=== PATIENT | male | born 1985 | race Hispanic/Latino ===

== ENCOUNTER → 2023-10-12 | Emergency (ER) | payer BC ==
[~2023-10-12] MED LIST: KETOROLAC 30 MG/ML INJ ONE
--- OUTSIDE RECORDS SUMMARY | 2023-10-12 16:03 | XMS REPORT | Continuity of Care Document ---
Author Name Unknown Address [address] [facility]. [address] [place] [id number] [facility] Address [address] [facility]. [address] [place] [address] Care Team Providers Care Manager Administrative Name Role Phone Unavailable Unavailable Unavailable Results Test Description Test Time Test Comments Results Result Co mments Source LIPID [id number] 04:29:14* Test Item Value Reference Range Interpretation Comme nts CHOLESTEROL (test code = 2210) 164 MG/DL <200 TRIGLYCERIDES (test code = 2232) 47 MG/DL <150 HDL CHOLESTEROL (test code = 2220) 46 MG/DL >39 CALC LDL CHOL (test code = 2237) 104 MG/DL <100 H NOTE: CALCULATED LDL IS BASED ON ELICIA-MINOR METHOD WHICHINCLUDES ADJUSTABLE TRIGLYCERIDE:VLDL CHOLESTEROL RATIO.THIS FACTOR VARIES BY MEASURED TRIGLYCERIDE AND NON-HDLCHOLESTEROL CONCENTRATIONS WITH INCREASED CALCULATED LDL SEENIN HIGHER TRIGLYCERIDE OR LOWER NON-HDL SPECIMENS. FOR MOREINFORMATION, SEE CLIENT ANNOUNCEMENT AT [email or web address] [email or web address] RATIO LDL/HDL (test code = 2238) 2.26 RATIO <3.55 HEMOGLOBIN [id number] 03:34:25* Test Item Value Reference Range Interpretation Comme nts HEMOGLOBIN A1c (test code = 15263) 5.7 % 4.2-5.6 H CBC W/AUTO DIFF WITH [id number] 02:43:42* Test Item Value Reference Range Interpretation Comme nts WBC (test code = 1001) 5.5 K/UL 3.5-11.0 RBC (test code = 1002) 5.17 M/UL 4.50-6.10 HEMOGLOBIN (test code = 1003) 15.0 G/DL 13.5-17.0 HEMATOCRIT (test code = 1004) 44.9 % 40.0-51.0 MCV (test code = 1005) 86.8 fL 80.0-99.0 MCH (test code = 1006) 29.0 PG 25.0-33.0 MCHC (test code = 1007) 33.4 G/DL 31.0-36.0 RDW (test code = 1038) 13.0 % 11.5-15.0 NEUTROPHILS (test code = 1008) 53.8 % LYMPHOCYTES (test code = 1010) 32.4 % MONOCYTES (test code = 1011) 9.5 % EOSINOPHILS (test code = 1012) 3.7 % BASOPHILS (test code = 1013) 0.4 % IMMATURE GRANULOCYTES (test code = 1036) 0.2 % NUCLEATED RBCS (test code = 1065) 0.0 /100 WBC'S See_Comment [Automated message] The system which generated this result transmitted reference range: 0.0. The reference range was not used to interpret this result as normal/abnormal. PLATELET COUNT (test code = 1015) 206 K/UL 130-400 ABSOLUTE NEUTROPHILS (test code = 1066) 2.95 K/UL 1.50-7.50 ABSOLUTE LYMPHOCYTES (test code = 1067) 1.77 K/UL 1.00-4.00 ABSOLUTE MONOCYTES (test code = 1068) 0.52 K/UL 0.20-1.00 ABSOLUTE EOSINOPHILS (test code = 1040) 0.20 K/UL 0.00-0.50 ABSOLUTE BASOPHILS (test code = 1069) 0.02 K/UL 0.00-0.20 ABS IMMATURE GRANULOCYTES (test code = 1020) 0.01 K/UL 0.00-0.10 ABS NUCLEATED RBCS (test code = 92995) 0.00 K/UL 0.00-0.11 UNLESS OTHER NIX INDICATED, ALL TESTING PERFORMED AT[facility] [address] [place] [id number] COOKIE PADDER: SOPHIA JOHNSON M.D. CLIA NUMBER [id number] [facility] [place]. [id number]
--- NOTE | 2023-10-12 16:07 | RAD REPORT ---
EXAM DESCRIPTION: RAD - Hand Left 3 View - 10/12/2023 3:56 pm CLINICAL HISTORY: PAIN COMPARISON: No comparisons FINDINGS: No fracture, dislocation or radiopaque foreign body visible.
--- NOTE | 2023-10-12 16:31 | ER ---
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 Bleeding controlled. ll1 Coronavirus screen: Client denies travel out of the [place] in the last 14 days. At this time, the client does not indicate any symptoms associated with coronavirus-19. Ebola Screen: Patient denies travel to an Ebola-affected area in the 21 days before illness onset. Initial Sepsis Screen: Does the patient meet any 2 criteria? No. Patient's initial sepsis screen is negative. Does the patient have a suspected source of infection? Yes: Bone or joint infection. Risk Assessment: Do you want to hurt yourself or someone else? Patient reports no desire to harm self or others. Onset of symptoms was October 12, 2023. 15:20 Method Of Arrival: Ambulatory ll1 15:20 Acuity: HELGA 3 ll1 Triage Assessment: 15:20 General: Appears in no apparent distress. uncomfortable, Behavior is calm, cooperative. rs5 15:20 Injury Description: Abrasion sustained to left hand. rs5 Historical: - Allergies: 15:21 No Known Allergies; ll1 - PMHx: 15:21 None; ll1 - PSHx: 15:21 None; ll1 - Immunization history:: Last tetanus immunization: up to date. - Social history:: Smoking status: Patient reports the use of cigarette tobacco products, smokes one-half pack cigarettes per day. Screenin:20 [facility] ED Fall Risk Assessment (Adult) History of falling in the last 3 months, rs5 including since admission No falls in past 3 months (0 pts) Confusion or Disorientation No (0 pts) Intoxicated or Sedated No (0 pts) Impaired Gait No (0 pts) Mobility Assist Device Used No (0 pt) Altered Elimination No (0 pt) Score/Fall Risk Level 0 - 2 = Low Risk Oriented to surroundings, Maintained a safe environment. Abuse screen: Denies threats or abuse. Nutritional screening: No deficits noted. Tuberculosis screening: No symptoms or risk factors identified. Assessment: 15:20 General: Appears in no apparent distress. uncomfortable, Behavior is calm, cooperative. rs5 Pain: Complains of pain in left hand Pain currently is 7 out of 10 on a pain scale. Quality of pain is described as aching, Is continuous. Neuro: Level of Consciousness is awake, alert, obeys commands, Oriented to person, place, time, situation. Cardiovascular: Rhythm is regular. Respiratory: Respiratory effort is even, unlabored, Respiratory pattern is regular, symmetrical. GI: Abdomen is round non-distended. : No signs and/or symptoms were reported regarding the genitourinary system. EENT: No signs and/or symptoms were reported regarding the EENT system. Derm: Skin is dry, Skin is normal, Skin temperature is warm Wound noted left hand Wound is dime sized abrasion noted to left palm, bleeding controlled. 15:20 Musculoskeletal: Range of motion: limited in left hand. rs5 16:45 Reassessment: Patient and/or family updated on plan of care and expected duration. Pain rs5 level reassessed. Patient is alert, oriented x 3, equal unlabored respirations, skin warm/dry/pink. 17:01 Reassessment: To bedside for wound cleaning. Abrasion to left hand cleansed with normal rs5 saline, Neosporin applied and wrapped with gauze, pt tolerated procedure well. Vital Signs: 15:20 BP 162 / 103; Pulse 91; Resp 17; Temp 97.1; Pulse Ox 99% ; Weight 89.81 kg; Height 5 ll1 ft. 11 in. ; Pain 7/10; 16:01 BP 155 / 91; Pulse 88; Resp 18; Pulse Ox 99% on R/A; rs5 17:01 BP 150 / 89; Pulse 86; Resp 18; Pulse Ox 99% on R/A; rs5 15:20 Body Mass Index 27.61 (89.81 kg, 180.34 cm) ll1 15:20 Pain Scale: Adult ll1 ED Course: 14:58 Patient arrived in ED. kj1 14:59 Rodrick Cook MD is Attending Physician. ec2 15:20 Patient has correct armband on for positive identification. Placed in gown. Bed in low rs5 position. Call light in reach. Side rails up X2. 15:20 No provider procedures requiring assistance completed. rs5 15:21 Triage completed. ll1 15:21 Arm band placed on. ll1 15:58 Hand Left 3 View XRAY In Process Unspecified. EDMS 16:40 Robert Leo, RN is Primary Nurse. rs5 17:15 Patient did not have IV access during this emergency room visit. rs5 Administered Medications: 16:40 Drug: Ketorolac IM 30 mg IM once Route: IM; Site: left deltoid; rs5 17:02 Follow up: Response: No adverse reaction; Pain is decreased rs5 Medication: 15:20 VIS not applicable for this client. rs5 Outcome: 16:31 Discharge ordered by . ec2 17:15 Discharged to home ambulatory, rs5 17:15 Condition: stable 17:15 Discharge instructions given to patient, Instructed on discharge instructions, follow up and referral plans. Demonstrated understanding of instructions, follow-up care, 17:19 Patient left the ED. rs5 Signatures: Dispatcher [employer] EDWI Clyde Patricia kj1 Tavo Spangler RN RN 1 Robert Leo, RN RN rs5 Rodrick Cook MD MD ec2 Corrections: (The following items were deleted from the chart) 15:21 15:20 Pulse 91bpm; Resp 17bpm; Pulse Ox 99%; Temp 97.1F; 89.81 kg; Height 5 ft. 11 in.; ll1 BMI: 27.6; Pain 7/10, Adult; ll1
--- NOTE | 2023-10-12 16:32 | EDPHYS ---
Physician Documentation [facility] Name: Oleg Marcos Age: 37 yrs Sex: Male : 1985 Arrival Date: 10/12/2023 Time: 14:55 Bed 15 Private MD: ED Physician Rodrick Cook HPI: 10/12 15:04 This 37 yrs old Male presents to ER via Unassigned with complaints of Hand ec2 Injury - MOTOR FELL ON HAND. 15:04 This 37 yrs old Male presents to ER via Unassigned with complaints of Hand ec2 Injury - MOTOR FELL ON HAND. 15:04 Patient arrives today for evaluation of left hand injury. States that he was working on ec2 a motor and subsequently the motor fell and injured his left hand. Complaining of pain at the dorsum of the base of the first digit. Patient states that he is up-to-date on his tetanus, most recently likely 1 to 2 years ago. Denies any other injury or pain.. Historical: - Allergies: 15:21 No Known Allergies; ll1 - PMHx: 15:21 None; ll1 - PSHx: 15:21 None; ll1 - Immunization history:: Last tetanus immunization: up to date. - Social history:: Smoking status: Patient reports the use of cigarette tobacco products, smokes one-half pack cigarettes per day. ROS: 15:04 Constitutional: as per hpi ec2 Exam: 15:04 Constitutional: GEN: NAD Head: atraumatic Eyes: EOMI Ears: External ears are ec2 normal. CV: regular rate LUNGS: no respiratory distress ABD: non-distended SKIN: Palmar of the hand with patient's first digit with skin disruption/ skin tear, TTP to the first metacarpal, intact distal neurovascular status MSK: no evidence of trauma NEURO: moves all extremities equally Vital Signs: 15:20 BP 162 / 103; Pulse 91; Resp 17; Temp 97.1; Pulse Ox 99% ; Weight 89.81 kg; Height 5 ll1 ft. 11 in. ; Pain 7/10; 16:01 BP 155 / 91; Pulse 88; Resp 18; Pulse Ox 99% on R/A; rs5 17:01 BP 150 / 89; Pulse 86; Resp 18; Pulse Ox 99% on R/A; rs5 15:20 Body Mass Index 27.61 (89.81 kg, 180.34 cm) ll1 15:20 Pain Scale: Adult ll1 MDM: 15:04 Patient medically screened. ec2 15:04 ED course: Patient arrives today for evaluation of a left hand injury. Examination ec2 remarkable for skin findings as noted above we will obtain radiograph of the hand to evaluate for bony fracture. Will defer tetanus shot as he is up-to-date.. 16:30 Data reviewed: vital signs. ED course: Hand x-ray shows no bony fracture. Will ec2 discharge home. Return precautions given. Does have a wound on the palmar aspect of the hand, this does not appear amenable to repair as there is a large tissue defect.. 10/12 15:04 Order name: Hand Left 3 View XRAY; Complete Time: 16:09 ec2 10/12 16:09 Order name: Wound Care; Complete Time: 17:19 ec2 10/12 16:09 Order name: Wound dressing; Complete Time: 17:19 ec2 Administered Medications: 16:40 Drug: Ketorolac IM 30 mg IM once Route: IM; Site: left deltoid; rs5 17:02 Follow up: Response: No adverse reaction; Pain is decreased rs5 Disposition Summary: 10/12/23 16:31 Discharge Ordered Notes: Location: Home ec2 Condition: Stable ec2 Diagnosis - Caught, crushed, jammed, or pinched between moving objects, initial encounter ec2 Followup: ec2 - With: Private Physician - When: - Reason: Re-evaluation by your physician Discharge Instructions: - Discharge Summary Sheet ec2 - Wound Care, Adult ec2 Forms: - Medication Reconciliation Form ec2 - Thank You Letter ec2 - Antibiotic Education ec2 - Prescription Opioid Use ec2 - Patient Portal Instructions ec2 - Leadership Thank You Letter ec2 Signatures: Dispatcher [employer] Tavo Watkins RN RN ll1 Robert Leo RN RN rs5 Rodrick Cook MD MD ec2 Corrections: (The following items were deleted from the chart) 16:30 15:04 Constitutional: GEN: NAD Head: atraumatic Eyes: EOMI Ears: External ears are ec2 normal. CV: regular rate LUNGS: no respiratory distress ABD: non-distended SKIN: Dorsum of the hand with patient's first digit with skin disruption/ skin tear, TTP to the first metacarpal, intact distal neurovascular status MSK: no evidence of trauma NEURO: moves all extremities equally ec2
[2023-10-12 17:35] VITALS: BP 162/103; TEMP 97.1; O2SAT 99
== END ==
LOC: ER 14:55
DX: S67.22XA Crushing injury of left hand, initial encounter (principal); W23.0XXA Caught, crushed, jammed, or pinched between moving objects, initial encounter; F17.210 Nicotine dependence, cigarettes, uncomplicated
CPT/HCPCS: 96372; 99284

== ENCOUNTER 2024-11-16 18:18 | Emergency (ER) | payer BC ==
--- OUTSIDE RECORDS SUMMARY | 2024-11-16 18:22 | XMS REPORT | Continuity of Care Document ---
Author Name Unknown Address [address] [facility] 1 [address] [place] [address] Organization [facility] [place] Address [address] [facility]. 1 [address] [place] [address] Care Team Providers Care Special Needs Tutor Name Role Phone Unavailable Unavailable Unavailable Results Test Description Test Time Test Comments Results Result Co mments Source LIPID [id number] 04:29:14* Test Item Value Reference Range Interpretation [...] SPECIMENS. FOR MOREINFORMATION, SEE CLIENT ANNOUNCEMENT AT [email or web address] RISK RATIO LDL/HDL (test code = 2238) 2.26 RATIO <3.55 HEMOGLOBIN [id number] 03:34:25* Test Item Value Reference Range Interpretation Comme nts HEMOGLOBIN A1c (test code = 78763) 5.7 % 4.2-5.6 H CBC W/AUTO DIFF WITH [id number] 02:43:42* Test Item Value Reference Range Interpretation [...] 0.00-0.10 ABS NUCLEATED RBCS (test code = 46671) 0.00 K/UL 0.00-0.11 UNLESS OTHER NIX INDICATED, ALL TESTING PERFORMED ATCLINICAL PATHOLOGY [employer] [address] [place] [address] EVENT MARKETING SPECIALIST: SOPHIA JOHNSON M.D. CLIA NUMBER [id number] [facility] [place]. [id number]
[2024-11-16] MEDS ORDERED: TETRACAINE HCL 0.5% 4ML OPTH ONE (18:29)
[2024-11-16] MEDS ORDERED: FLUORESCEIN SODIUM 1 MG/WRAP ONE (18:29)
--- NOTE | 2024-11-16 18:45 | ER ---
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 currently rates his pain as a 7/10 on the pain scale. Coronavirus screen: At this time, the client does not indicate any symptoms associated with coronavirus-19. Ebola Screen: No symptoms or risks identified at this time. Initial Sepsis Screen: Does the patient meet any 2 criteria? HR > 90 bpm. Does the patient have a suspected source of infection? No. Patient's initial sepsis screen is negative. Risk Assessment: Do you want to hurt yourself or someone else? Patient reports no desire to harm self or others. Onset of symptoms was November 16, 2024. 18:29 Method Of Arrival: Ambulatory ap3 18:29 Acuity: HELGA 3 ap3 Triage Assessment: 18:31 General: Appears uncomfortable, Behavior is calm, cooperative, appropriate for age. ap3 Pain: Complains of pain in left eye. EENT: Eyes redness to left eye. Neuro: Level of Consciousness is awake, alert, obeys commands, Oriented to person, place, time, situation, Appropriate for age. Cardiovascular: Patient's skin is warm and dry. Respiratory: Airway is patent Respiratory effort is even, unlabored, Respiratory pattern is regular, symmetrical. Historical: - Allergies: 18:31 No Known Allergies; ap3 - Home Meds: 18:31 None [Active]; ap3 - PMHx: 18:31 None; ap3 - Immunization history:: Client reports having NOT received the Covid vaccine. - Infectious Disease History:: Denies. - Social history:: Smoking status: Patient denies any tobacco usage or history of. Screenin:32 [facility] ED Fall Risk Assessment (Adult) History of falling in the last 3 months, ap3 including since admission No falls in past 3 months (0 pts) Confusion or Disorientation No (0 pts) Intoxicated or Sedated No (0 pts) Impaired Gait No (0 pts) Mobility Assist Device Used No (0 pt) Altered Elimination No (0 pt) Score/Fall Risk Level 0 - 2 = Low Risk Oriented to surroundings, Maintained a safe environment, Educated pt \T\ family on fall prevention, incl call for assistance when getting out of bed, Assessed \T\ reinforced patient's understanding of fall precautions, Hourly rounding (assess needs \T\ fall precautionary measures) done, Used ambulatory aids as needed (educated on \T\ assisted with). Abuse screen: Denies threats or abuse. Nutritional screening: No deficits noted. Tuberculosis screening: No symptoms or risk factors identified. Assessment: 18:35 General: Appears in no apparent distress. 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 currently rates his pain as a 7/10 on the pain scale. Pain: Complains of pain in left eye Pain does not radiate. Pain currently is 7 out of 10 on a pain scale. Quality of pain is described as stinging, Pain began gradually, Is continuous. Neuro: Level of Consciousness is awake, alert, obeys commands, Oriented to person, place, time, situation, Appropriate for age. Cardiovascular: Patient's skin is warm and dry. Respiratory: Airway is patent Respiratory effort is even, unlabored, Respiratory pattern is regular, symmetrical. GI: No signs and/or symptoms were reported involving the gastrointestinal system. : No signs and/or symptoms were reported regarding the genitourinary system. EENT: Eyes are tearing on left eye. Derm: Skin is intact, is healthy with good turgor, Skin is pink, warm \T\ dry. Musculoskeletal: No signs and/or symptoms reported regarding the musculoskeletal system. Vital Signs: 18:29 BP 137 / 108; Pulse 108; Resp 18; Temp 97.8; Pulse Ox 100% ; Weight 90.72 kg; Height 6 ap3 ft. 0 in. ; Pain 7/10; 18:47 BP 128 / 96; Pulse 95; Resp 16; Temp 98.2; Pulse Ox 99% ; me1 18:29 Body Mass Index 27.12 (90.72 kg, 182.88 cm) ap3 18:29 Pain Scale: Adult ap3 ED Course: 18:20 Patient arrived in ED. rg4 18:22 Trena Tang FNP-C is [facility]. kb 18:22 Khanh Allen MD is Attending Physician. kb 18:29 Radha Mercado, RN is Primary Nurse. me1 18:31 Triage completed. ap3 18:32 Arm band placed on right wrist. ap3 18:35 Patient has correct armband on for positive identification. Bed in low position. Call me1 light in reach. Side rails up X 1. Provided Education on: POC. Verbalized understanding.. Client placed on continuous cardiac and pulse oximetry monitoring. NIBP monitoring applied. Pulse ox on. NIBP on. 18:35 No provider procedures requiring assistance completed. Patient did not have IV access me1 during this emergency room visit. 18:48 Eye irrigation of left eye with saline flushes with 50 ml normal saline, Patient me1 tolerated well. Administered Medications: 18:34 Drug: Tetracaine Ophthalmic Drops 0.5 % 1 drops Ophthalmic once {Note: Administered by me1 FLAKITO Roman.} Route: Ophthalmic; Site: left eye; 18:49 Follow up: Response: No adverse reaction; Pain is decreased me1 Medication: 18:35 VIS not applicable for this client. ky1 Outcome: 18:44 Discharge ordered by . kb 18:53 Discharged to home ambulatory, me1 18:53 Condition: stable 18:53 Discharge instructions given to patient, Instructed on discharge instructions, follow up and referral plans. medication usage, Demonstrated understanding of instructions, follow-up care, medications, Prescriptions given X 1, 18:53 Patient left the ED. 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 currently rates his pain as a 7/10 on the pain scale ap3
--- NOTE | 2024-11-16 18:45 | EDPHYS ---
Physician Documentation [facility] Name: Oleg Marcos Age: 38 yrs Sex: Male : 1985 Arrival Date: 11/16/2024 Time: 18:18 Bed 13 Private MD: ED Physician Khanh Allen HPI: 11/16 20:13 This 38 yrs old Male presents to ER via Ambulatory with complaints of Eye kb Problem. 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 . Historical: - Allergies: 18:31 No Known Allergies; ap3 - Home Meds: 18:31 None [Active]; ap3 - PMHx: 18:31 None; ap3 - Immunization history:: Client reports having NOT received the Covid vaccine. - Infectious Disease History:: Denies. - Social history:: Smoking status: Patient denies any tobacco usage or history of. ROS: 20:13 Constitutional: As per HPI kb Exam: 20:13 Constitutional: This is a well developed, well nourished patient who is awake, alert, kb and in no acute distress. Head/Face: Normocephalic, atraumatic. Cardiovascular: Regular rate Respiratory: Respirations even and unlabored. No increased work of breathing. Talking in full sentences Skin: Warm, dry with normal turgor. Normal color. MS/ Extremity: Pulses equal, no cyanosis. Neurovascular intact. Full, normal range of motion. Neuro: Awake and alert, GCS 15, oriented to person, place, time, and situation. 20:13 Eyes: Periorbital structures: appear normal, Pupils: equal, round, and reactive to light and accomodation, Extraocular movements: intact throughout, Conjunctiva: injected, in the left eye, Corneas: abrasion, is not appreciated, foreign body, is not appreciated, a fluorescein strip employed to appreciate the findings, Intraocular pressure: left eye = 18mmHg, Vital Signs: 18:29 BP 137 / 108; Pulse 108; Resp 18; Temp 97.8; Pulse Ox 100% ; Weight 90.72 kg; Height 6 ap3 ft. 0 in. ; Pain 7/10; 18:47 BP 128 / 96; Pulse 95; Resp 16; Temp 98.2; Pulse Ox 99% ; me1 18:29 Body Mass Index 27.12 (90.72 kg, 182.88 cm) ap3 18:29 Pain Scale: Adult ap3 MDM: 18:22 Medical Screening Exam initiated kb 20:15 Differential diagnosis: Corneal abrasion of Corneal ulcer of Foreign body in Acute kb iritis of Data reviewed: vital signs, nurses notes. Counseling: I had a detailed discussion with the patient and/or guardian regarding the historical points, exam findings, and any diagnostic results supporting the discharge/admit diagnosis, the need for outpatient follow up, an opthalmologist, to return to the emergency department if symptoms worsen or persist or if there are any questions or concerns that arise at home. 11/16 18:28 Order name: Eye Tray; Complete Time: 18:34 kb 11/16 18:28 Order name: Fluoresene Opth strip; Complete Time: 18:34 kb Administered Medications: 18:34 Drug: Tetracaine Ophthalmic Drops 0.5 % 1 drops Ophthalmic once {Note: Administered by me1 FLAKITO Roman.} Route: Ophthalmic; Site: left eye; 18:49 Follow up: Response: No adverse reaction; Pain is decreased me1 Disposition Summary: 11/16/24 18:44 Discharge Ordered Notes: Location: Home kb Condition: Stable kb Diagnosis - Unspecified acute conjunctivitis, left eye kb Followup: kb - With: Emergency Department - When: As needed - Reason: Worsening of condition Followup: kb - With: Private Physician - When: 2 - 3 days - Reason: Recheck today's complaints, Continuance of care, Re-evaluation by your physician Discharge Instructions: - Discharge Summary Sheet kb - Chemical Conjunctivitis, Adult, [id number] kb - Bacterial Conjunctivitis, Adult, [id number] kb Forms: - Medication Reconciliation Form kb - Antibiotic Education kb - Prescription Opioid Use kb - Patient Portal Instructions kb - Leadership Thank You Letter kb Prescriptions: - Vigamox 0.5 % Ophthalmic Drops - instill 1 drop OPHTHALMIC route every 8 hours for 7 days; 5 milliliter; kb Refills: 0, Product Selection Permitted Signatures: Trena Tang FNP-C FNP-Ckb Prokisch, Amanda RN RN ap3 Eddleman, Radha, RN RN me1
[2024-11-16 19:01] VITALS: BP 128/96; TEMP 98.2; O2SAT 99
== END 2024-11-16 18:53 | disposition home or self-care (01) ==
LOC: ER 18:18
DX: H10.32 Unspecified acute conjunctivitis, left eye (principal)
CPT/HCPCS: 99284